=== PATIENT | female | born 1980 | race Caucasian/White ===

== ENCOUNTER 2017-07-18 12:46 | Emergency (ER) | payer OTHER ==
[~2017-07-18] VITALS: Ht 165.1 cm; Wt 56.8 kg
[~2017-07-18 12:46] MED LIST: CELEXA 20MG20 MG/TAB PO; LEVORA-28 30 MC1 TA1 PO; LYRICA 150MG C150 MG PO; PERCOCET 325 MG1 TAB PO; XANAX 1MG1 MG PO
[2017-07-18 12:49] VITALS: TEMP 99.1
[2017-07-18 15:01] VITALS: BP 144/70; PULSE 88
== END 2017-07-18 15:04 | disposition home or self-care (01) ==
LOC: COL.ER 12:46
DX: G43.909 Migraine, unspecified, not intractable, without status migrainosus (principal); G50.0 Trigeminal neuralgia
CPT/HCPCS: J1170; J1200; J1885; J2765; J7030